=== PATIENT | male | born 1955 | race Caucasian/White ===

== ENCOUNTER → 2016-09-20 | Outpatient (REF) | payer MEDICARE, MEDICAID ==
[~2016-09-20] MED LIST: /AUGM875TA OR; /GLIM2TA PEG; /MOXI40TA PEG; ACET65TA PEG; ARTISOL10 OU; ASPI325T PEG; ASPI81TA3 OR; AUGEMENTIN GT; AUGEMENTIN PEG; AYR SALINE NASAL GEL; BACITAB PEG; BACITAB PO; CALCCHW12 PEG; CALCIUM/VITAMIN D PEG; CARA1SUS GT; COLA100C2 PEG; CRANBERRY PO; CRES20TA PEG; DUO NEB INH; ENOX40SY SC; EUCECRE2 EX; GEMF600T PEG; GLIMEPIRIDE PEG; HUMALOG INSULIN; INSULANT SC; KEPPRA PEG; LACOSAMIDE PEG; LISI20TA5 PEG; LOPR50TA PEG; MILKSUS OR; MULITVITAMIN PEG; MULTIVIT PEG; NYSTATIN POWDER TOP; PAIN325T PEG; POTA10CA2 PEG; POTASSIUM PEG; PREV30TA PEG; RANI150C OR; REGULOID PEG; SENN8.6T14 PEG; SENO8.6T5 OR; SENO8.6T5 PEG; SOD; VICO5TAB OR; VIMPAT GT; [UNRECOGNIZED DRUG - OTHER] PO; [UNRECOGNIZED DRUG - REMARK] PEG; sodium chloride tab PO
[2016-09-20 12:24] LABS: MEAN CORPUSCULAR HEMOGLOBIN 28.8 pg (27.0-33.0); MEAN CORPUSCULAR HGB CONC 32.9 g/dl (32.0-36.5); MEAN CORPUSCULAR VOLUME 87.7 fl (80.0-96.0); RED CELL DISTRIBUTION WIDTH 14.5 % (11.5-14.5); WHITE BLOOD COUNT 9.6 K/mm3 (4.0-10.0)
== END | disposition home or self-care (01) ==
PROVIDERS: ATTEND Internal Medicine
DX: Z86.73 Personal history of transient ischemic attack (TIA), and cerebral infarction without residual deficits (principal)

== ENCOUNTER → 2016-10-03 | Outpatient (REF) | payer MEDICARE, MEDICAID | PROVIDERS: ATTEND Internal Medicine | DX: G40.909 Epilepsy, unspecified, not intractable, without status epilepticus (principal) ==

== ENCOUNTER → 2016-11-22 | Outpatient (REF) | payer MEDICARE, MEDICAID ==
[2016-11-22 13:13] LABS: ALBUMIN 2.9 GM/DL (3.2-5.2); ALBUMIN/GLOBULIN RATIO 0.71 (1.00-1.93); ALKALINE PHOSPHATASE 110 U/L (45-117); ALT/SGPT 19 U/L (12-78); ANION GAP 12 MEQ/L (8-16); AST/SGOT 17 U/L (15-37); BILIRUBIN,TOTAL 0.4 MG/DL (0.2-1.0); BLOOD UREA NITROGEN 19 MG/DL (7-18); CALCIUM LEVEL 8.7 MG/DL (8.5-10.1); CARBON DIOXIDE LEVEL 25 MEQ/L (21-32); CHLORIDE LEVEL 101 MEQ/L (98-107); CREATININE FOR GFR 0.68 MG/DL (0.70-1.30); GLOMERULAR FILTRATION RATE > 60.0 (>56); GLUCOSE, FASTING 168 MG/DL (70-105); POTASSIUM SERUM 4.3 MEQ/L (3.5-5.1); SODIUM LEVEL 138 MEQ/L (136-145)
== END ==
PROVIDERS: ATTEND Internal Medicine
DX: I10 Essential (primary) hypertension (principal)

== ENCOUNTER → 2016-12-20 | Outpatient (REF) | payer MEDICARE, MEDICAID ==
[2016-12-20 10:30] LABS: MEAN CORPUSCULAR HEMOGLOBIN 28.8 pg (27.0-33.0); MEAN CORPUSCULAR HGB CONC 33.9 g/dl (32.0-36.5); MEAN CORPUSCULAR VOLUME 85.1 fl (80.0-96.0); RED CELL DISTRIBUTION WIDTH 15.8 % (11.5-14.5); WHITE BLOOD COUNT 10.4 K/mm3 (4.0-10.0)
== END ==
PROVIDERS: ATTEND Internal Medicine
DX: I63.9 Cerebral infarction, unspecified (principal)

== ENCOUNTER → 2017-02-20 | Outpatient (REF) | payer MEDICARE, MEDICAID ==
[2017-02-20 11:06] LABS: ALBUMIN 2.6 GM/DL (3.2-5.2); ALBUMIN/GLOBULIN RATIO 0.57 (1.00-1.93); ALKALINE PHOSPHATASE 125 U/L (45-117); ALT/SGPT 21 U/L (12-78); ANION GAP 10 MEQ/L (8-16); AST/SGOT 13 U/L (15-37); BILIRUBIN,TOTAL 0.4 MG/DL (0.2-1.0); BLOOD UREA NITROGEN 23 MG/DL (7-18); CALCIUM LEVEL 8.7 MG/DL (8.8-10.2); CARBON DIOXIDE LEVEL 29 MEQ/L (21-32); CHLORIDE LEVEL 98 MEQ/L (98-107); CREATININE FOR GFR 0.84 MG/DL (0.70-1.30); GLOMERULAR FILTRATION RATE > 60.0 (>49); GLUCOSE, FASTING 270 MG/DL (80-110); POTASSIUM SERUM 4.7 MEQ/L (3.5-5.1); SODIUM LEVEL 137 MEQ/L (136-145); TOTAL PROTEIN 7.2 GM/DL (6.4-8.2)
== END ==
PROVIDERS: ATTEND Internal Medicine
DX: E11.9 Type 2 diabetes mellitus without complications (principal)

== ENCOUNTER → 2017-03-09 | Outpatient (REF) | payer MEDICARE, MEDICAID ==
[~2017-03-09] MED LIST changes: +ACET1TAB17 PEG; +ALBU83IN INH; +ATOR40TA75 PEG; +DULC10SU2 PR; +ENEMENE16 PR; +FEVE650S8 PR; +GLUC1KIT IM; +HUMA50IN SC; +LEVE500UDC PEG; +LISI-538 PEG; +METO50TA7 PEG; +MILKSUS PEG; +SENN1TAB10 PEG; +TOUJ1.2I SC; +VIMP100T PEG
--- NOTE | 2017-03-09 15:49 | REP ---
Chest, single AP view, the patient upright: Comparisons 07/31/2015. There are no focal infiltrates. There are no pleural effusions. There is chronic cardiomegaly, unchanged. The joslyn, mediastinum, and bony thorax are unremarkable. Impression: Chronic cardiomegaly. No acute infiltrates or effusions. Signed by Samuel Yadav MD 03/09/2017 03:40 P
== END ==
PROVIDERS: ATTEND Internal Medicine
DX: R05 Cough (principal)

== ENCOUNTER → 2017-03-21 | Outpatient (REF) | payer MEDICARE, MEDICAID ==
[2017-03-21 11:33] LABS: MEAN CORPUSCULAR HEMOGLOBIN 26.7 pg (27.0-33.0); MEAN CORPUSCULAR HGB CONC 31.8 g/dl (32.0-36.5); MEAN CORPUSCULAR VOLUME 84.2 fl (80.0-96.0); RED CELL DISTRIBUTION WIDTH 15.8 % (11.5-14.5); WHITE BLOOD COUNT 12.4 K/mm3 (4.0-10.0)
== END ==
PROVIDERS: ATTEND Internal Medicine
DX: I63.9 Cerebral infarction, unspecified (principal)

== ENCOUNTER → 2017-04-10 | Outpatient (REF) | payer MEDICARE, MEDICAID | PROVIDERS: ATTEND Internal Medicine | DX: G40.909 Epilepsy, unspecified, not intractable, without status epilepticus (principal) ==

== ENCOUNTER → 2017-04-16 | Outpatient (REF) | payer MEDICARE, MEDICAID ==
--- NOTE | 2017-04-16 16:58 | REP ---
PORTABLE CHEST: AP portable view of the chest is performed. COMPARISON: 03/09/2017 Once again there is mild cardiomegaly noted with some calcification and ectasia of the thoracic aorta. The mediastinal silhouette is unchanged. There is mild stable bibasilar fibroatelectatic change with no new infiltrate. IMPRESSION: Chronic cardiomegaly and fibroatelectatic change without evidence of acute infiltrate. Signed by Samuel Lyles MD 04/17/2017 08:44 A
== END ==
PROVIDERS: ATTEND Internal Medicine
DX: I51.7 Cardiomegaly (principal); J98.4 Other disorders of lung; R00.0 Tachycardia, unspecified

== ENCOUNTER → 2017-04-16 | Outpatient (REF) | payer MEDICARE, MEDICAID ==
[2017-04-16 14:12] LABS: MEAN CORPUSCULAR HEMOGLOBIN 26.2 pg (27.0-33.0); MEAN CORPUSCULAR VOLUME 81.9 fl (80.0-96.0); RED CELL DISTRIBUTION WIDTH 15.8 % (11.5-14.5); WHITE BLOOD COUNT 15.4 K/mm3 (4.0-10.0)
[2017-04-16 14:54] LABS: ANION GAP 13 MEQ/L (8-16); BLOOD UREA NITROGEN 25 MG/DL (7-18); CALCIUM LEVEL 8.6 MG/DL (8.8-10.2); CARBON DIOXIDE LEVEL 25 MEQ/L (21-32); CHLORIDE LEVEL 98 MEQ/L (98-107); CREATININE FOR GFR 0.79 MG/DL (0.70-1.30); GLOMERULAR FILTRATION RATE > 60.0 (>49); GLUCOSE, FASTING 289 MG/DL (80-110); POTASSIUM SERUM 4.9 MEQ/L (3.5-5.1); SODIUM LEVEL 136 MEQ/L (136-145)
== END ==
PROVIDERS: ATTEND Internal Medicine
DX: R00.0 Tachycardia, unspecified (principal)

== ENCOUNTER → 2017-05-15 | Outpatient (REF) | payer MEDICARE, MEDICAID | PROVIDERS: ATTEND Internal Medicine | DX: Z79.899 Other long term (current) drug therapy (principal) ==

== ENCOUNTER → 2017-05-22 | Outpatient (REF) | payer MEDICARE, MEDICAID ==
[2017-05-22 11:23] LABS: ALBUMIN 2.8 GM/DL (3.2-5.2); ALBUMIN/GLOBULIN RATIO 0.57 (1.00-1.93); ALKALINE PHOSPHATASE 112 U/L (45-117); ALT/SGPT 21 U/L (12-78); ANION GAP 8 MEQ/L (8-16); AST/SGOT 23 U/L (15-37); BILIRUBIN,TOTAL 0.4 MG/DL (0.2-1.0); BLOOD UREA NITROGEN 17 MG/DL (7-18); CALCIUM LEVEL 8.6 MG/DL (8.8-10.2); CARBON DIOXIDE LEVEL 28 MEQ/L (21-32); CHLORIDE LEVEL 101 MEQ/L (98-107); CREATININE FOR GFR 0.65 MG/DL (0.70-1.30); GLOMERULAR FILTRATION RATE > 60.0 (>49); GLUCOSE, FASTING 148 MG/DL (80-110); POTASSIUM SERUM 4.2 MEQ/L (3.5-5.1); SODIUM LEVEL 137 MEQ/L (136-145); TOTAL PROTEIN 7.7 GM/DL (6.4-8.2)
== END ==
PROVIDERS: ATTEND Internal Medicine
DX: I10 Essential (primary) hypertension (principal)

== ENCOUNTER 2017-06-17 12:13 | Emergency (ER) | payer MEDICARE, MEDICAID ==
[~2017-06-17] VITALS: Ht 177.8 cm; Wt 89.1 kg
[~2017-06-17 12:13] MED LIST changes: -ACET1TAB17 PEG; -ALBU83IN INH; -ATOR40TA75 PEG; -DULC10SU2 PR; -ENEMENE16 PR; -FEVE650S8 PR; -GLUC1KIT IM; -HUMA50IN SC; -LEVE500UDC PEG; -LISI-538 PEG; -METO50TA7 PEG; -MILKSUS PEG; -SENN1TAB10 PEG; -TOUJ1.2I SC; -VIMP100T PEG
[2017-06-17 12:57] LABS: BASO # 0.1 10^3/uL (0.0-0.2); BASO % 0.2 % (0.0-1.0); IMMATURE GRANULOCYTE % 1.3 % (0-0); LYMPH # 0.6 10^3/uL (1.5-4.5); LYMPH % 2.4 % (24.0-44.0); MEAN CORPUSCULAR HEMOGLOBIN 26.5 pg (27.0-33.0); MEAN CORPUSCULAR HGB CONC 32.2 g/dl (32.0-36.5); MEAN CORPUSCULAR VOLUME 82.5 fl (80.0-96.0); MONO # 1.3 10^3/uL (0.0-0.8); MONO % 5.2 % (0.0-5.0); NEUTROPHILS # 21.7 10^3/uL (1.8-7.7); NEUTROPHILS % 90.9 % (36.0-66.0); PLATELET COUNT, AUTOMATED 410 10^3/uL (150-450); RED CELL DISTRIBUTION WIDTH 16.6 % (11.5-14.5); WHITE BLOOD COUNT 23.9 10^3/uL (4.0-10.0)
[2017-06-17 12:58] LABS: ADD MANUAL DIFFER NO; DIFF SLIDE NUMBER 133
[2017-06-17] MEDS ORDERED: VANCOMYCIN HCL 1,000 MG, VIAL MATE ADAPTER 1 EACH in D5W 250 ML IV ONE (13:30)
[2017-06-17] MEDS ORDERED: NS 2,670 ML in APPROPRIATE DILUENT 1 EA IV ONE (13:30)
[2017-06-17] MEDS ORDERED: MEROPENEM INJ 1 GM in D5W MINI-BAG PLUS 100 ML IV ONE (13:30)
[2017-06-17 13:31] LABS: ALBUMIN 2.7 GM/DL (3.2-5.2); ALBUMIN/GLOBULIN RATIO 0.47 (1.00-1.93); BILIRUBIN,DIRECT 0.4 MG/DL (0.0-0.2); BILIRUBIN,TOTAL 0.7 MG/DL (0.2-1.0); TOTAL PROTEIN 8.5 GM/DL (6.4-8.2)
[2017-06-17 13:33] LABS: ANION GAP 10 MEQ/L (8-16); BLOOD UREA NITROGEN 27 MG/DL (7-18); CALCIUM LEVEL 9.7 MG/DL (8.8-10.2); CARBON DIOXIDE LEVEL 24 MEQ/L (21-32); CHLORIDE LEVEL 98 MEQ/L (98-107); CREATININE FOR GFR 1.27 MG/DL (0.70-1.30); GLOMERULAR FILTRATION RATE > 60.0 (>49); GLUCOSE, FASTING 258 MG/DL (80-110); POTASSIUM SERUM 3.9 MEQ/L (3.5-5.1); SODIUM LEVEL 132 MEQ/L (136-145)
[2017-06-17 13:57] LABS: ABG BASE EXCESS -4.3 (-2.0-2.0); ABG HCO3 19.9 MEQ/L (22.0-26.0); ABG PARTIAL PRESSURE CO2 34.1 mmHg (35.0-45.0); ABG PARTIAL PRESSURE O2 106.4 mmHg (75.0-100.0); ABG STANDARD HCO3 20.9 MEQ/L (22.0-26.0); ABG TOTAL CO2 20.9 MEQ/L (23.0-31.0); ABG pH (ARTERIAL) 7.384 UNITS (7.350-7.450)
[2017-06-17] MEDS: IPRATROPIUM 0.5MG/ALBUTEROL 2.5MG INH SOL UD 3ML (DUONEB)(J7620) NEB SCH ×3 (13:59→14:01)
[2017-06-17 14:03] LABS: CALCIUM OXALATE CRYSTALS SMALL
--- NOTE | 2017-06-17 14:21 | REP ---
REASON: Dyspnea. COMPARISON: 04/16/2017 The technique utilized in obtaining the radiograph has magnified the cardiac silhouette and accentuated the interstitial markings. There is cardiomegaly, status quo. There is interstitial fibrotic change, status quo. No acute patchy parenchymal opacities or pleural effusions have developed. There is no change in the osseous structures. IMPRESSION: Stable chest without plain radiographic evidence of acute cardiopulmonary disease. Findings as described above. Signed by Escobar Garcia DO 06/17/2017 03:31 P
[2017-06-17] MEDS ORDERED: ISOVUE-370 76% 100ML VIAL (Q9967) As Ordered ONE (14:43)
--- NOTE | 2017-06-17 15:51 | REP ---
CT ABDOMEN AND PELVIS AFTER INTRAVENOUS CONTRAST ADMINISTRATION: CONTRAST: 100 mL Isovue 370. COMPARISON: Abdominal and pelvis CT 09/07/2011. There is motion artifact obscuring all detail. There is a PEG tube in place. There are liver cysts, status quo. There is abnormal low density seen in the posterior segment of the right lobe of the liver representing a change from the prior exam. The etiology of this is uncertain. It is obscured by motion artifact. The gallbladder is contracted. The spleen and pancreas are essentially unchanged remaining within normal limits. The adrenal glands are within normal limits and unchanged. There are bilateral staghorn calculi unchanged. There is evidence of xanthogranulomatous pyelonephritis on the right seen in conjunction with an unchanged large right renal cyst. There is periaortic adenopathy which has increased compared to the prior exam. There is adenopathy near the SMA. There is no evidence of free fluid or free air in the abdomen. There is no evidence of intestinal obstruction. CT PELVIS: There is a large amount of content in the rectal vault. There is a Waller balloon decompressing the urinary bladder, the stein of which appear thickened. There is no intestinal obstruction. Limited evaluation of the bowel loops and their mesentery show no gross abnormalities. The bones are demineralized, status quo. IMPRESSION: 1. Liver abnormalities as described above, of uncertain etiology. Neoplasm versus asymmetric geographic fatty infiltration. There is motion artifact obscuring the detail. Pre and post gadolinium-enhanced hepatic MRI is recommended. 2. 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 Urological consultation is suggested. 3. There is para-aortic adenopathy and retroperitoneal adenopathy of uncertain etiology. Neoplasm cannot be ruled out. Lymphoma/leukemia are considerations if clinically relevant. 4. There is a PEG tube in place and there is a Waller balloon catheter decompressing the urinary bladder. 5. Other findings as described above. Signed by Escobar Garcia DO 06/17/2017 03:53 P
--- NOTE | 2017-06-17 15:52 | REP ---
REASON: Fever. COMPARISON: None. CONTRAST: 100 mL of Isovue 370. There is no mediastinal or hilar adenopathy. There are no pleural or pericardial effusions. The imaged osseous structures are within normal limits for the patient's age. Evaluation of the lung weaver show respiratory motion artifact, which is rather marked obscuring all detail. There are no gross opacities. Bilateral subsegmental atelectatic changes are suspected. A significant nodule or mass cannot be rule out due to the artifact. IMPRESSION: Exam limitations and findings as described above. Signed by Escobar Garcia DO 06/17/2017 03:53 P
[2017-06-17] MEDS ORDERED: TOUJ1.2I SC (17:25)
[2017-06-17] MEDS ORDERED: DULC10SU2 PR (17:25)
[2017-06-17] MEDS ORDERED: LISI-538 PEG (17:25)
[2017-06-17] MEDS ORDERED: ALBU83IN INH (17:25)
[2017-06-17] MEDS ORDERED: FEVE650S8 PR (17:25)
[2017-06-17] MEDS ORDERED: ATOR40TA75 PEG (17:25)
[2017-06-17] MEDS ORDERED: HUMA50IN SC (17:25)
[2017-06-17] MEDS ORDERED: GLUC1KIT IM (17:25)
[2017-06-17] MEDS ORDERED: SENN1TAB10 PEG (17:25)
[2017-06-17] MEDS ORDERED: METO50TA7 PEG (17:25)
[2017-06-17] MEDS ORDERED: MILKSUS PEG (17:25)
[2017-06-17] MEDS ORDERED: ACET1TAB17 PEG (17:25)
[2017-06-17] MEDS ORDERED: ENEMENE16 PR (17:25)
[2017-06-17] MEDS ORDERED: VIMP100T PEG (17:25)
[2017-06-17] MEDS ORDERED: LEVE500UDC PEG (17:25)
[2017-06-17] MEDS ORDERED: NS 1,000 ML IV SCH (20:00)
[2017-06-17 22:32] VITALS: BP 135/65
--- NOTE | 2017-06-18 08:56 | ECGEPIP ---
Stationary ECG Study [facility] - ED Test Date: 2017-06-17 Pat Name: MARICEL ASHTON Department: Room: - Gender: M [employer]: : 1955 Requested By: DAPHNE Banegas Order Number: [id number] Reading MD: Paul Lancaster Measurements Intervals [place] Rate: 139 P: 52 CA: 152 QRS: -11 QRSD: 86 T: 57 QT: 296 QTc: 450 Interpretive Statements SINUS TACHYCARDIA LEFT AXIS DEVIATION SIMILAR TO 08/17/11 Electronically Signed On 06-18-2017 8:56:34 EDT by Paul Lancaster
== END 2017-06-17 22:46 | disposition short-term general hospital (02) ==
LOC: M ED 12:13 → EDBD 12:13 → M ED 22:46
DX: A41.9 Sepsis, unspecified organism (principal); N16 Renal tubulo-interstitial disorders in diseases classified elsewhere; R00.0 Tachycardia, unspecified; R93.2 Abnormal findings on diagnostic imaging of liver and biliary tract; I51.7 Cardiomegaly; E11.9 Type 2 diabetes mellitus without complications; Z86.73 Personal history of transient ischemic attack (TIA), and cerebral infarction without residual deficits; F32.9 Major depressive disorder, single episode, unspecified; R56.9 Unspecified convulsions; Z93.1 Gastrostomy status; Z79.4 Long term (current) use of insulin; Z79.899 Other long term (current) drug therapy
CPT/HCPCS: 36415; 36600; 51702; 71010; 71260; 74177; 80048; 80076; 81001; 82550; 82553; 82803; 83605; 83880; 84443; 84484; 85025; 86140; 87040; 87077; 87088; 87186; 87486; 87581; 87633; 87798; 87804; 93005; 93041; 94640; 96374; 96375; 99291; J2185; J3370; Q9967

== ENCOUNTER → 2017-06-20 | Outpatient (REF) | payer MEDICARE, MEDICAID ==
[~2017-06-20] MED LIST changes: +ACET1TAB17 PEG; +ALBU83IN INH; +ATOR40TA75 PEG; +DULC10SU2 PR; +ENEMENE16 PR; +FEVE650S8 PR; +GLUC1KIT IM; +HUMA50IN SC; +LEVE500UDC PEG; +LISI-538 PEG; +METO50TA7 PEG; +MILKSUS PEG; +SENN1TAB10 PEG; +TOUJ1.2I SC; +VIMP100T PEG
== END ==
PROVIDERS: ATTEND Internal Medicine
DX: I63.9 Cerebral infarction, unspecified (principal)